=== PATIENT | male | born 1995 | race Caucasian/White ===

== ENCOUNTER 2023-10-19 08:51 | Emergency (ER) | payer OTHER, SELFPAY ==
--- OUTSIDE RECORDS SUMMARY | 2023-10-19 08:54 | XMS REPORT | Continuity of Care Document ---
:1995 Author Organization [facility] t Address [address] [facility] [address] [place] [address] Care Team Providers Name Role Phone Malachi Yo Primary Care Physician Craig Attending Clinician Unavailable GUSTAVO LARSON Attending Clinician Unavailable Therapy, Adc Covid Infusion Attending Clinician Unavailable Gustavo Larson MD Attending Clinician Doctor Unassigned, [place] Attending Clinician Unavailable Craig Admitting Clinician Unavailable Payers Payer Name Policy Type Policy Number Effective Date Expiration Date S ource [facility]: [facility] [id number] 2022 2023 00:00: 00 [place] 00[place]:00 [facility] [id number] 2020 - OUT OF STATE 00:00:00 Problems Condition Condition Condition Status Onset Resolution Last Treating Co mments Source Name Details Category Date Date Treatment Clinician Date Vasectomy Vasectomy Problem Active 2022-12 Jovita reed requested Requested 12-06 Metr o 00:00: Urology 00 Allergies, Adverse Reactions, Alerts Allergy Allergy Status Severity Reaction(s) Onset Inactive Treating Comm ents Source Name Type Date Date Clinician BENADRYL DRUG Active Unknown-Cmnt Un amanda ALLERGY 8-21 ity of [place] 00:00: [place] [address] [facility] [place] Benadryl Propensi Active Unknown - Uni vers Allergy ty to See comments 8-21 ity of [place] adverse 00:00: [facility] reaction Medical s Branch NO KNOWN Drug Active Univers ALLERGIE Class ity of [facility] [place] [facility] Social History Social Habit Start Date Stop Date Quantity Comments Source Exposure to Yes [facility] SARS-CoV-2 (event) Medica l Branch Sex Assigned At [birth year] [facility] 00:00:00 00:00:00 [facility] Smoking Status Start Date Stop Date Source Never Smoker [place] [facility] Unknown if ever smoked [facility] Medications Ordered Filled Start Stop Current Ordering Indication Dosage Frequency Signature Comments Components Source Medication Medication Date Date Medication? Clinician (SIG) Name Name casirivimab 2020- No [id number] 1200mg 1,200 mg, Univers -imdevimab 08-02 Subcutaneo it y of (REGEN-COV 20:00: 17:07 us, ONCE, [place] (EUA[place] 00 :00 1 dose, Medical injection Geno 08/02/21 Bran ch 1,200 mg at 1500, Routine casirivimab 2020- No [id number] 1200mg 1,200 mg, Univers -imdevimab 08-02 Subcutaneo it y of (REGEN-COV 20:00: 17:07 us, ONCE, [place] (EUA)) 00 :00 1 dose, Medical injection Geno 08/02/21 Bran ch 1,200 mg at 1500, Routine casirivimab 2020- No [id number] 1200mg 1,200 mg, Univers -imdevimab 08-02 Subcutaneo it y of (REGEN-COV 20:00: 17:07 us, ONCE, [place] (EUA)) 00 :00 1 dose, Medical injection Geno 08/02/21 Bran ch 1,200 mg at 1500, Routine clotrimazol clotrimazol No clotrimazo [place] e-betametha e-betametha le-betamet [place] sone 1 sone 1 hasone 1 Urology %-0.05 % %-0.05 % %-0.05 % topical topical topical cream cream cream Vital Signs Vital Name Observation Time Observation Value Comments Source BMI (Body Mass 2023-10-06 00:00:00 30.8 kg/m2 [place] Index) Urology Height 2023-10-06 00:00:00 74 [in_i] [facility] Body Weight 2023-10-06 00:00:00 240 [lb_av] [facility] Systolic blood 2021-07-21 17:40:00 112 mm[Hg] Univer sity of pressure [place] [facility] Diastolic blood 2021-07-21 17:40:00 66 mm[Hg] Unive rsity of pressure [facility] Heart rate 2021-07-21 17:40:00 88 /min [facility] Body temperature 2021-07-21 17:40:[address] [facility] Respiratory rate 2021-07-21 17:40:00 18 /min [facility] Oxygen saturation in 2021-07-21 17:40:00 94 /min [facility] blood by [facility] Pulse oximetry Branch Body height 2021-07-21 16:45:00 188 cm [facility] Body weight 2021-07-21 16:45:00 115.667 kg [facility] BMI 2021-07-21 16:45:00 32.74 kg/m2 [facility] Procedures Procedure Date / Time Performed Performing Clinician [facility] e CONSENT/REFUSAL FOR 2021-07-21 05:01:00 Doctor Unassigned, No Un [facility] DIAGNOSIS AND Name [facility] TREATMENT Plan of Care Planned Activity Planned Date Details Comments Source Future Appointment 2023-11-14 13:20:00 Everardo Garcia [facility] [address]; , [place] [address] Encounters Start End Encounter Admission Attending Care Care Encounter Source Date/Time Date/Time Type Type Clinicians Facility Department ID 2023-10-06 2023-10-06 Outpatient Craig [facility] [id number] [place] 00:00:00 00:00:00 [id number] [facility] 2023-10-06 2023-10-06 [place] [facility] [place] [facility] [id number] [facility]:00 Everardo Rankin MD: [id number] [facility] Urology [facility] - [address] [place] [address], [place] [id number] , Ph. 2023-10-01 2023-10-01 [id number] [place] 00:00:00 00:00:00 [id number] [facility] 2021-07-21 2021-07-21 Outpatient Ortega LARSON, [facility] [id number] 306 [facility] [place] 11:00:00 11:00:00 GUSTAVO rand of [place] [facility] 2021-07-21 2021-07-21 Nurse Therapy, Adc Covid Infusion [facility] [id number] Univers 08:44:00 09:44:00 Visit Gustavo Larson [id number] [id number] [id number] [facility] 053 Branch 2021-07-21 2021-07-21 Orders Doctor [place]AR[place] [id number] Univers 00:00:00 00:00:00 Only Unassigned, JOO [id number] ity of [place] [facility] [id number] [place] [id number] [facility] deshawn 009 Branch 2021-07-21 2021-07-21 Orders Doctor STAR[place] [id number] Univers 00:00:00 00:00:00 Only Unassigned, JOO [id number] ity of [place] [facility] [id number] [place] [id number] [place] [address] Branch Results This patient has no known results.
[2023-10-19] MEDS ORDERED: KETOROLAC 30 MG/ML INJ ONE (09:18)
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
[2023-10-19 10:15] VITALS: TEMP 97.8
[2023-10-19 10:16] VITALS: BP 121/87; O2SAT 99
--- NOTE | 2023-10-22 17:02 | EKG ---
Test Date: 2023-10-19 Test Time: 09:09:53 Correctional Supervisor Lieutenant: KEN MEASUREMENT RESULTS: Intervals: Rate: 67 MN: 166 QRSD: 90 QT: 360 QTc: 380 [place]: P: 48 MN: 166 QRS: 67 T: 46 INTERPRETIVE STATEMENTS: Normal sinus rhythm with sinus arrhythmia Cannot rule out Anterior infarct, age undetermined Abnormal ECG Compared to ECG 02/19/2015 02:00:33 Myocardial infarct finding now present Electronically Signed On 10-22-23 16:54:21 TWISTING OPERATOR by Naldo Casanova
== END 2023-10-19 10:10 | disposition home or self-care (01) ==
LOC: ER 08:51
DX: S20.219A Contusion of unspecified front wall of thorax, initial encounter (principal); V49.49XA Driver injured in collision with other motor vehicles in traffic accident, initial encounter; Z88.8 Allergy status to other drugs, medicaments and biological substances
CPT/HCPCS: 71045; 93005; 99284

== ENCOUNTER → 2023-12-25 | Emergency (ER) | payer BC, OTHER, SELFPAY ==
[~2023-12-25] MED LIST: CEFTRIAXONE 1000 MG/VIAL ONE; HYDROMORPHONE HCL 1 MG/ML INJ ONE; KETOROLAC 30 MG/ML INJ ONE; MORPHINE 4 MG/ML SYR ONE; NA CHLORIDE 0.9% 1,000 ML ONE; ONDANSETRON 4 MG/2 ML VIAL ONE; POTASSIUM 25 MEQ EFFERV TAB ONE; PROMETHAZINE INJ 25 MG/ML AMP ONE; TAMSULOSIN 0.4 MG SR CAP ONE
--- OUTSIDE RECORDS SUMMARY | 2023-12-25 16:14 | XMS REPORT | Continuity of Care Document ---
Author Name Unknown Address [address] [place] [address] [facility] thconnect Address 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 Role Phone Malachi Yo Primary Care Physician [phone] Craig Attending Clinician Unavailable GUSTAVO LARSON Attending Clinician Unavailable Therapy, [facility] Covid Infusion Attending Clinician Unavailable Gustavo Larson MD Attending Clinician [phone] Doctor Unassigned, [place] Attending Clinician U navailable Craig Admitting Clinician Unavailable Payers Payer Name Policy Type Policy Number Effective Date Expirati on Date Source [place] [id number] 2022 00:00:00 2023 00:00:00 [facility] [id number] 2020 00:00:00 Problems Condition Name Condition Details Condition Category Status Onset Date Resolution Date Last Treatment Date Treating Clinician Comments Source Male sterilizat ion Male Sterilizat ion Problem Active 2022-12 2-15 00:00: 00 [facility] Vasectomy requested Vasectomy Requested Problem Active 2022-12 1-06 00:00: 00 [facility] Allergies, Adverse Reactions, Alerts Allergy Name Allergy Type Status Severity Reaction(s) Onset Date Inactive Date Treating Clinician Comments Source BENADRYL ALLERGY DECONGES TANT DRUG Active Unknown-Cmnt 8 00:00: 00 [facility] Benadryl Allergy Deconges tant Propensi ty to adverse reaction s Active Unknown - See comments 07-21 00:00: 00 [facility] NO KNOWN ALLERGIE S Drug Class Active [facility] Social History Social Habit Start Date Stop Date Quantity Comments Source Exposure to SARS-CoV-2 (event) Yes [facility] Sex Assigned At 1995 00:00:00 1995 00:00:00 [facility] Smoking Status Start Date Stop Date Source Never Smoker [facility] Unknown if ever smoked [facility] Medications Ordered Medication Name Filled Medication Name Start Date Stop Date Current Medication? Ordering Clinician Indication Dosage Frequency Signature (SIG) Comments Components Source casirivimab -imdevimab (REGEN-COV (EUA)) injection 1,200 mg 08-02 20:00: 00 07-21 17:07 :00 No [id number] 1200mg 1,200 mg, Subcutaneo us, ONCE, 1 dose, Geno 08/02/21 at 1500, Routine [facility] casirivimab -imdevimab (REGEN-COV (EUA)) injection 1,200 mg 08-02 20:00: 00 07-21 17:07 :00 No [id number] 1200mg 1,200 mg, Subcutaneo us, ONCE, 1 dose, Geno 08/02/21 at 1500, Routine [facility] casirivimab -imdevimab (REGEN-COV (EUA)) injection 1,200 mg 08-02 20:00: 00 07-21 17:07 :00 No [id number] 1200mg 1,200 mg, Subcutaneo us, ONCE, 1 dose, Geno 08/02/21 at 1500, Routine [facility] clotrimazol e-betametha sone 1 %-0.05 % topical cream clotrimazol e-betametha sone 1 %-0.05 % topical cream No clotrimazo le-betamet hasone 1 %-0.05 % topical cream [facility] Naprosyn 500 mg tablet Take 1 tablet twice a day by oral route. Naprosyn 500 mg tablet Take 1 tablet twice a day by oral route. No 1 BID Naprosyn 500 mg tablet Take 1 tablet twice a day by oral route. [facility] Urolog clotrimazol e-betametha sone 1 %-0.05 % topical cream clotrimazol e-betametha sone 1 %-0.05 % topical cream No clotrimazo le-betamet hasone 1 %-0.05 % topical cream [facility] Vital Signs Vital Name Observation Time Observation Value Comments S ource Height 2023-10-06 00:00:00 74 [in_i] [place] [facility] Body Weight 2023-10-06 00:00:00 240 [lb_av] Jovita millann [facility] BMI (Body Mass Index) 2023-10-06 00:00:00 30.8 kg/m2 [facility] Systolic blood pressure 2021-07-21 17:40:00 112 mm[Hg] [facility] Diastolic blood pressure 2021-07-21 17:40:00 66 mm[Hg] [facility] Heart rate 2021-07-21 17:40:00 88 /min [facility] Body temperature 2021-07-21 17:40:00 37.56 Qing [facility] Respiratory rate 2021-07-21 17:40:00 18 /min [facility] Oxygen saturation in Arterial blood by Pulse oximetry 2021-07-21 17:40:00 94 /min [facility] Body height 2021-07-21 16:45:00 188 cm [facility] Body weight 2021-07-21 16:45:00 115.667 kg [facility] BMI 2021-07-21 16:45:00 32.74 kg/m2 [facility] Procedures Procedure Date / Time Performed Performing Clinicia n Source CONSENT/REFUSAL FOR DIAGNOSIS AND TREATMENT 2021-07-21 05:01:00 Doctor Unassigned, [place] [facility] Encounters Start Date/Time End Date/Time Encounter Type Admission Type Attending Clinicians Care Facility Care Department Encounter ID Source 2023-11-26 00:00:00 2023-11-26 00:00:00 Outpatient [facility] [id number] [facility] 2023-11-23 00:00:00 2023-11-23 00:00:00 Outpatient [facility] [id number] [facility] 2023-11-14 00:00:00 2023-11-14 00:00:00 Outpatient [facility] HMU [id number] [facility] 2023-11-14 00:00:00 2023-11-14 00:00:00 Nick Rankin MD: [id number], [place] [address] , Ph. U [facility] [id number] [facility] 2023-10-29 00:00:00 2023-10-29 00:00:00 Outpatient [facility] HMU [id number] [facility] 2023-10-19 00:00:00 2023-10-19 00:00:00 Outpatient [place]M [facility] HMU [id number] [facility] 2023-10-06 00:00:00 2023-10-06 00:00:00 Outpatient [place]M [facility] HMU [id number] [facility] Urology 2023-10-06 00:00:00 2023-10-06 00:00:00 Nick Rankin MD: [id number] [facility] [address], [place] [address] , Ph. U [facility] Urology [place] [id number] [facility]rology 2023-10-01 00:00:00 2023-10-01 00:00:00 Outpatient [place]M [facility]U HMU [id number] [facility] U[facility] 2021-07-21 11:00:00 2021-07-21 11:00:00 Outpatient GUSTAVO WILKERSON [facility] [id number] [facility] 2021-07-21 08:44:00 2021-07-21 09:44:00 Nurse Visit Therapy, Adc Covid Gustavo Cha [facility] 1..114 [id number] [facility] 2021-07-21 00:00:00 2021-07-21 00:00:00 Orders Only Doctor Unassigned, [place] [facility] [id number] [facility] 2021-07-21 00:00:00 2021-07-21 00:00:00 Orders Only Doctor Unassigned, [place] [facility] 1..114 [id number] [facility]
[2023-12-25 16:47] LABS: Absolute Lymphocytes (CBC) 1.1 K/uL (0.7-4.9); Hematocrit 43.4 % (39.6-49.0); Lymphocytes % 12.3 % (15.3-44.8); MCV 85.8 fL (80-100); MPV 8.1 fL (7.6-11.3); Platelets 216 thou/uL (152-406); RBC Red Blood Cell Count 5.06 M/uL (4.33-5.43)
[2023-12-25 17:03] LABS: Albumin 4.5 g/dL (3.4-5.0); Bilirubin Total 0.7 mg/dL (0.2-1.0); Potassium 3.3 mEq/L (3.5-5.1)
--- NOTE | 2023-12-25 18:13 | RAD REPORT ---
EXAM DESCRIPTION: CT - Stone Protocol - 12/25/2023 5:43 pm CLINICAL HISTORY: Abdominal pain. Right flank pain COMPARISON: None. TECHNIQUE: Computed axial tomography of the abdomen pelvis was obtained without oral or IV contrast. Lack of IV and oral contrast limits evaluation of solid organs, appendix, bowel, and vessels. Venegas l reformatted images were obtained and reviewed. All CT scans are performed using dose optimization technique as appropriate and may include automated exposure control or mA/KV adjustment according to patient size. FINDINGS: Mild right hydronephrosis. 4 millimeter calculus right UPJ. Left renal calculus is not see n The liver, spleen, pancreas and adrenals appear grossly normal There is no evidence of diverticulitis. The appendix appears normal IMPRESSION: 4 millimeter calculus right UPJ resulting in mild right hydronephrosis
--- NOTE | 2023-12-25 18:16 | ER ---
Nurse's Notes [facility] Name: Joao Donohue Age: 28 yrs Sex: Male : 1995 Arrival Date: 12/25/2023 Time: 16:11 Bed 13 Private MD: Diagnosis: Abdominal tenderness;Hydronephrosis with renal and ureteral calculous obstruction-4mm UVJ;Hypokalemia Presentation: 12/25 16:24 Chief complaint: Patient states: he started having right sided flank pain at approx ap3 1300 today. patient reports that his pain is currently an 8/10 on the pain scale. patient also reports nausea and vomit X's 1. Coronavirus screen: At this time, the client does not indicate any symptoms associated with coronavirus-19. Ebola Screen: No symptoms or risks identified at this time. Initial Sepsis Screen: Does the patient meet any 2 criteria? HR > 90 bpm. Does the patient have a suspected source of infection? Yes: Dysuria/Frequency/Urgency/UTI. Risk Assessment: Do you want to hurt yourself or someone else? Patient reports no desire to harm self or others. Onset of symptoms was December 25, 2023 at 13:00. 16:24 Method Of Arrival: Ambulatory ap3 16:24 Acuity: LINO 3 ap3 Triage Assessment: 16:27 General: Appears uncomfortable, Behavior is calm, cooperative, appropriate for age. ap3 Pain: Complains of pain in right flank Pain currently is 8 out of 10 on a pain scale. at worst was 10 out of 10 on a pain scale. Pain began 3 hours ago. Neuro: Level of Consciousness is awake, alert, obeys commands, Oriented to person, place, time, situation, Appropriate for age. Cardiovascular: Patient's skin is warm and dry. Respiratory: Airway is patent Respiratory effort is even, unlabored, Respiratory pattern is regular, symmetrical. GI: Reports nausea, vomiting. : Reports pain in right flank(s). Historical: - Allergies: 16:26 Benadryl; ap3 16:26 Versed; ap3 - Home Meds: 16:26 None [Active]; ap3 - PMHx: 16:26 None; ap3 - Immunization history:: Client reports having NOT received the Covid vaccine. Flu vaccine is not up to date. - Social history:: Smoking status: Patient denies any tobacco usage or history of. Patient uses alcohol, occasionally. Screenin:27 [facility] ED Fall Risk Assessment (Adult) History of falling in the last 3 months, ap3 including since admission No falls in past 3 months (0 pts). Abuse screen: Denies threats or abuse. Nutritional screening: No deficits noted. Tuberculosis screening: No symptoms or risk factors identified. Assessment: 16:30 General: Appears uncomfortable, ill, well groomed, well developed, well nourished, me1 Behavior is calm, cooperative, appropriate for age, Reports he started having right sided flank pain at approx 1300 today. patient reports that his pain is currently an 8/10 on the pain scale. patient also reports nausea and vomit X's 1. Pain: Complains of pain in right flank Pain does not radiate. Pain currently is 10 out of 10 on a pain scale. Quality of pain is described as sharp, stabbing, Pain began suddenly, 3 hours ago. Is continuous. Neuro: Level of Consciousness is awake, alert, obeys commands, Oriented to person, place, time, situation, Appropriate for age. Cardiovascular: Capillary refill < 3 seconds Patient's skin is warm and dry. Respiratory: Airway is patent Respiratory effort is even, unlabored, Respiratory pattern is regular, symmetrical. : Reports pain in right flank(s), Denies burning with urination, urinary frequency, urgency. 20:08 GI: Bowel sounds present X 4 quads. Abd is soft and non tender X 4 quads. me1 Vital Signs: 16:24 BP 118 / 81; Pulse 103; Resp 17; Temp 98.8; Pulse Ox 100% ; Weight 111.13 kg; Height 6 ap3 ft. 2 in. ; Pain 8/10; 16:32 BP 130 / 73; Pulse 112; Resp 19; Pulse Ox 100% on R/A; me1 17:30 BP 135 / 82; Pulse 110; Resp 20; Pulse Ox 99% on R/A; me1 18:30 BP 128 / 69; Pulse 106; Resp 19; Pulse Ox 98% on R/A; me1 19:30 BP 127 / 83; Pulse 102; Resp 20; Pulse Ox 99% on R/A; me1 20:01 BP 106 / 66; Pulse 102; Resp 18; Pulse Ox 100% on R/A; me1 16:24 Body Mass Index 31.46 (111.13 kg, 187.96 cm) ap3 16:24 Pain Scale: Adult ap3 ED Course: 16:14 Patient arrived in ED. kj1 16:22 Darron Ortiz MD is Attending Physician. clayton 16:26 Triage completed. ap3 16:28 Arm band placed on right wrist. ap3 16:28 Patient has correct armband on for positive identification. Call light in reach. Side ap3 rails up X 1. Adult w/ patient. Pulse ox on. NIBP on. 16:30 Provided Education on: POC. Verbalized understanding.. me1 16:30 No provider procedures requiring assistance completed. me1 16:35 Danielle Morales, ISAIAS is Primary Nurse. me1 16:44 Initial lab(s) drawn, by ED staff, sent to lab. Inserted saline lock: 20 gauge in right [id number] antecubital area, using aseptic technique. Blood collected. 17:45 CT Stone Protocol In Process Unspecified. EDMS 18:15 Christoph Vargas MD is Referral Physician. clayton 20:09 IV discontinued, intact, bleeding controlled, No redness/swelling at site. Pressure me1 dressing applied. Administered Medications: 17:07 Drug: NS 0.9% IV 1000 ml IV at 1 bolus Per protocol; 1000 mL bolus Route: IV; Rate: 1 me1 bolus; Site: right antecubital; 18:18 Follow up: IV Status: Completed infusion; IV Intake: 1000ml me1 17:07 Drug: Ondansetron IVP 4 mg IVP once; over 2 minutes Route: IVP; Site: right antecubital;me1 17:12 Follow up: Response: No adverse reaction me1 17:07 Drug: morphine IVP or IV 4 mg IVP once over 4 mins Route: IVP; Infused Over: 4 mins; me1 Site: right antecubital; 17:12 Follow up: Response: No adverse reaction; Pain is decreased me1 17:07 Drug: Ketorolac IVP 30 mg IVP once Route: IVP; Site: right antecubital; me1 17:12 Follow up: Response: No adverse reaction; Pain is decreased me1 17:07 Drug: Flomax PO 0.4 mg PO once Route: PO; me1 17:13 Follow up: Response: No adverse reaction me1 18:10 Drug: Rocephin IV 1 grams IV at per protocol once; Given slow IV push per pharmacy me1 instructions Route: IV; Rate: per protocol; Site: right antecubital; 18:18 Follow up: Response: No adverse reaction; IV Status: Completed infusion; IV Intake: [id number] 18:10 Drug: morphine IVP or IV 4 mg IVP once over 4 mins Route: IVP; Infused Over: 4 mins; me1 Site: right antecubital; 18:19 Follow up: Response: No adverse reaction; Pain is decreased me1 18:17 Drug: NS 0.9% IV 1000 ml IV at 1 bolus Per protocol; 1000 mL bolus Route: IV; Rate: 1 me1 bolus; Site: right antecubital; 20:10 Follow up: IV Status: Completed infusion; IV Intake: 1000ml me1 18:17 Drug: Potassium PO Effervescent Tablet 25 mEq PO once; dissolve in 4 ounces of water or me1 juice Route: PO; 18:40 Follow up: Response: No adverse reaction me1 18:33 Drug: Promethazine IVP 25 mg IVP once Route: IVP; Site: right antecubital; me1 18:40 Follow up: Response: No adverse reaction; Nausea is decreased me1 18:33 Drug: HYDROmorphone IVP 1 mg IVP once Route: IVP; Site: right antecubital; me1 18:40 Follow up: Response: No adverse reaction; Pain is decreased me1 18:37 Drug: NS 0.9% IV 1000 ml IV at 1 bolus Per protocol; 1000 mL bolus Route: IV; Rate: 1 me1 bolus; Site: right antecubital; 20:10 Follow up: IV Status: Completed infusion; IV Intake: 1000ml me1 Medication: 16:30 VIS not applicable for this client. me1 Intake: 18:18 IV: 1000ml; Total: 1000ml. me1 18:18 IV: 10ml; Total: 1010ml. me1 20:10 IV: 1000ml; Total: 2010ml. me1 20:10 IV: 1000ml; Total: 3010ml. me1 Outcome: 18:16 Discharge ordered by MD. arnold 20:08 Discharged to home ambulatory, with significant other, me1 20:08 Condition: stable 20:08 Discharge instructions given to patient, significant other, Instructed on discharge instructions, follow up and referral plans. medication usage, Demonstrated understanding of instructions, follow-up care, medications, Prescriptions given X 4, 20:10 Patient left the ED. me1 Signatures: Dispatcher [employer] EDDarron Stiles MD MD cha Prokisch, Amanda RN RN ap3 Genie Cuenca kj1 Danielle Morales RN RN me1 Russell Torres [email or web address] Corrections: (The following items were deleted from the chart) 17:08 16:24 Chief complaint: Patient states: he started having right sided flank pain at ne1 approx 1300 today. patient reports that his pain is currently an 8/10 on the pain scale. patient also reports nausea and vomit X's 1 ap3
--- NOTE | 2023-12-25 18:17 | EDPHYS ---
Physician Documentation [facility] Name: Joao Donohue Age: 28 yrs Sex: Male : 1995 Arrival Date: 12/25/2023 Time: 16:11 Bed 13 Private MD: DELMER Physician Darron Ortiz HPI: 12/25 17:24 This 28 yrs old Male presents to ER via Ambulatory with complaints of clayton Possible Kidney Stone, Nausea/Vomiting. 17:24 The patient presents to the emergency department with nausea, vomiting, that is clayton intermittent, abdominal pain, of the anterior aspect of right lateral abdomen, posterior aspect of right lateral abdomen and right lower quadrant. Onset: The symptoms/episode began/occurred 1 day(s) ago. Possible causes: unknown. The symptoms are aggravated by nothing. The symptoms are alleviated by nothing. Associated signs and symptoms: Pertinent positives: abdominal pain, nausea, vomiting. Severity of symptoms: At their worst the symptoms were moderate severe in the emergency department the symptoms are unchanged. The patient has not experienced similar symptoms in the past. Historical: - Allergies: 16:26 Benadryl; ap3 16:26 Versed; ap3 - Home Meds: 16:26 None [Active]; ap3 - PMHx: 16:26 None; ap3 - Immunization history:: Client reports having NOT received the Covid vaccine. Flu vaccine is not up to date. - Social history:: Smoking status: Patient denies any tobacco usage or history of. Patient uses alcohol, occasionally. ROS: 17:26 Constitutional: Negative for fever, chills, and weight loss, Eyes: Negative for injury, clayton pain, redness, and discharge, ENT: Negative for injury, pain, and discharge, Neck: Negative for injury, pain, and swelling, Cardiovascular: Negative for chest pain, palpitations, and edema, Respiratory: Negative for shortness of breath, cough, wheezing, and pleuritic chest pain, : Negative for injury, bleeding, discharge, and swelling, MS/Extremity: Negative for injury and deformity, Skin: Negative for injury, rash, and discoloration, Neuro: Negative for headache, weakness, numbness, tingling, and seizure, Psych: Negative for depression, anxiety, suicide ideation, homicidal ideation, and hallucinations, Allergy/Immunology: Negative for hives, rash, and allergies, Endocrine: Negative for neck swelling, polydipsia, polyuria, polyphagia, and marked weight changes, Hematologic/Lymphatic: Negative for swollen nodes, abnormal bleeding, and unusual bruising, 17:26 Abdomen/GI: Positive for abdominal pain, nausea and vomiting, abdominal cramps, 17:26 Back: Positive for pain at rest, flank pain, on the right, Exam: 17:26 Constitutional: This is a well developed, well nourished patient who is awake, alert, clayton and in no acute distress. Head/Face: Normocephalic, atraumatic. Eyes: Pupils equal round and reactive to light, extra-ocular motions intact. Lids and lashes normal. Conjunctiva and sclera are non-icteric and not injected. Cornea within normal limits. Periorbital areas with no swelling, redness, or edema. ENT: Nares patent. No nasal discharge, no septal abnormalities noted. Tympanic membranes are normal and external auditory canals are clear. Oropharynx with no redness, swelling, or masses, exudates, or evidence of obstruction, uvula midline. Mucous membranes moist. Neck: Trachea midline, no thyromegaly or masses palpated, and no cervical lymphadenopathy. Supple, full range of motion without nuchal rigidity, or vertebral point tenderness. No Meningismus. Chest/axilla: Normal chest wall appearance and motion. Nontender with no deformity. No lesions are appreciated. Cardiovascular: Regular rate and rhythm with a normal S1 and S2. No gallops, murmurs, or rubs. Normal PMI, no JVD. No pulse deficits. Respiratory: Lungs have equal breath sounds bilaterally, clear to auscultation and percussion. No rales, rhonchi or wheezes noted. No increased work of breathing, no retractions or nasal flaring. Abdomen/GI: Soft, non-tender, with normal bowel sounds. No distension or tympany. No guarding or rebound. No evidence of tenderness throughout. Back: No spinal tenderness. No costovertebral tenderness. Full range of motion. Male : Normal genitalia with no discharge or lesions. Skin: Warm, dry with normal turgor. Normal color with no rashes, no lesions, and no evidence of cellulitis. MS/ Extremity: Pulses equal, no cyanosis. Neurovascular intact. Full, normal range of motion. Neuro: Awake and alert, GCS 15, oriented to person, place, time, and situation. Cranial nerves II-XII grossly intact. Motor strength 5/5 in all extremities. Sensory grossly intact. Cerebellar exam normal. Normal gait. Psych: Awake, alert, with orientation to person, place and time. Behavior, mood, and affect are within normal limits. 17:26 : CVA tenderness, on the right, Male external genitalia: normal, no abrasion, no discharge, no erythema, no injury, no swelling, no tenderness, no evidence of ulceration, Bladder: is normal, Sexual behavior: the patient is sexually active, and reports a single partner, Vital Signs: 16:24 BP 118 / 81; Pulse 103; Resp 17; Temp 98.8; Pulse Ox 100% ; Weight 111.13 kg; Height 6 ap3 ft. 2 in. ; Pain 8/10; 16:32 BP 130 / 73; Pulse 112; Resp 19; Pulse Ox 100% on R/A; me1 17:30 BP 135 / 82; Pulse 110; Resp 20; Pulse Ox 99% on R/A; me1 18:30 BP 128 / 69; Pulse 106; Resp 19; Pulse Ox 98% on R/A; me1 19:30 BP 127 / 83; Pulse 102; Resp 20; Pulse Ox 99% on R/A; me1 20:01 BP 106 / 66; Pulse 102; Resp 18; Pulse Ox 100% on R/A; me1 16:24 Body Mass Index 31.46 (111.13 kg, 187.96 cm) ap3 16:24 Pain Scale: Adult ap3 MDM: 16:22 Patient medically screened. clayton 17:27 Differential diagnosis: nephrolithiasis, pyelonephritis, UTI, testicular torsion, clayton diverticulitis, pancreatitis, Nonspecific abd pain, gastritis, pancreatitis, appendicitis, diverticulitis, viral gastroenteritis, gastroenteritis, appendicitis, gastritis, gastroesophageal reflux disease, non-specific abd pain, pancreatitis, Pyelonephritis. Data reviewed: vital signs, nurses notes, lab test result(s), radiologic studies, CT scan. Consideration of Admission/Observation Escalation of care including admission/observation considered. I considered the following discharge prescriptions or medication management in the emergency department Medications were administered in the Emergency Department. See MAR. Independent interpretation of the following test(s) in the Emergency Department CT Scan: My interpretation is ct stone. Test considered but Not performed: EKG: no ekg. Historians other than the Patient: Spouse/Significant Other: well informed. Care significantly affected by the following chronic conditions: Obesity, none. 12/25 16:24 Order name: CBC with Diff; Complete Time: 17:22 [facility] 12/25 16:24 Order name: CMP; Complete Time: 17:22 [facility] 12/25 16:24 Order name: Lipase; Complete Time: 17:22 [facility] 12/25 16:24 Order name: Urinalysis w/ reflexes [facility] 12/25 19:32 Order name: Urine Culture [facility] 12/25 17:22 Order name: CT Stone Protocol; Complete Time: 18:15 [facility] 12/25 16:24 Order name: IV Saline Lock; Complete Time: 16:44 [facility] 12/25 16:24 Order name: Labs collected and sent; Complete Time: 16:44 [facility] Administered Medications: 17:07 Drug: NS 0.9% IV 1000 ml IV at 1 bolus Per protocol; 1000 mL bolus Route: IV; Rate: 1 me1 bolus; Site: right antecubital; 18:18 Follow up: IV Status: Completed infusion; IV Intake: 1000ml me1 17:07 Drug: Ondansetron IVP 4 mg IVP once; over 2 minutes Route: IVP; Site: right antecubital;me1 17:12 Follow up: Response: No adverse reaction me1 17:07 Drug: morphine IVP or IV 4 mg IVP once over 4 mins Route: IVP; Infused Over: 4 mins; me1 Site: right antecubital; 17:12 Follow up: Response: No adverse reaction; Pain is decreased me1 17:07 Drug: Ketorolac IVP 30 mg IVP once Route: IVP; Site: right antecubital; me1 17:12 Follow up: Response: No adverse reaction; Pain is decreased me1 17:07 Drug: Flomax PO 0.4 mg PO once Route: PO; me1 17:13 Follow up: Response: No adverse reaction me1 18:10 Drug: Rocephin IV 1 grams IV at per protocol once; Given slow IV push per pharmacy me1 instructions Route: IV; Rate: per protocol; Site: right antecubital; 18:18 Follow up: Response: No adverse reaction; IV Status: Completed infusion; IV Intake: [id number] 18:10 Drug: morphine IVP or IV 4 mg IVP once over 4 mins Route: IVP; Infused Over: 4 mins; me1 Site: right antecubital; 18:19 Follow up: Response: No adverse reaction; Pain is decreased me1 18:17 Drug: NS 0.9% IV 1000 ml IV at 1 bolus Per protocol; 1000 mL bolus Route: IV; Rate: 1 me1 bolus; Site: right antecubital; 20:10 Follow up: IV Status: Completed infusion; IV Intake: 1000ml me1 18:17 Drug: Potassium PO Effervescent Tablet 25 mEq PO once; dissolve in 4 ounces of water or me1 juice Route: PO; 18:40 Follow up: Response: No adverse reaction me1 18:33 Drug: Promethazine IVP 25 mg IVP once Route: IVP; Site: right antecubital; me1 18:40 Follow up: Response: No adverse reaction; Nausea is decreased me1 18:33 Drug: HYDROmorphone IVP 1 mg IVP once Route: IVP; Site: right antecubital; me1 18:40 Follow up: Response: No adverse reaction; Pain is decreased me1 18:37 Drug: NS 0.9% IV 1000 ml IV at 1 bolus Per protocol; 1000 mL bolus Route: IV; Rate: 1 me1 bolus; Site: right antecubital; 20:10 Follow up: IV Status: Completed infusion; IV Intake: 1000ml me1 Disposition Summary: 12/25/23 18:16 Discharge Ordered Notes: Location: Home clayton Problem: new clayton Symptoms: have improved clayton Condition: Stable clayton Diagnosis - Abdominal tenderness clayton - Hydronephrosis with renal and ureteral calculous obstruction - 4mm UVJ clayton - Hypokalemia clayton Followup: clayton - With: Private Physician - When: 2 - 3 days - Reason: Recheck today's complaints, Continuance of care, Re-evaluation by your physician Followup: clayton - With: Christoph Vargas MD - When: 2 - 3 days - Reason: Recheck today's complaints, Re-evaluation by your physician Discharge Instructions: - Discharge Summary Sheet clayton - Abdominal Pain, Adult clayton - Potassium Content of Foods clayton - Kidney Stones clayton - Kidney Stones, [id number] clayton - Abdominal Pain, Adult, [id number] clayton - Hydronephrosis clayton - Dietary Guidelines to Help Prevent Kidney Stones clayton - Hypokalemia clayton Forms: - Medication Reconciliation Form clayton - Thank You Letter clayton - Antibiotic Education clayton - Prescription Opioid Use clayton - Patient Portal Instructions clayton - Leadership Thank You Letter clayton Prescriptions: - Flomax 0.4 mg Oral capsule - take 1 capsule ORAL route every day at bedtime; 20 capsule; Refills: 0, Product [facility] Selection Permitted - acetaminophen-codeine 300-30 mg Oral tablet - take 2 tablet ORAL route 4 times per day; 20 tablet; Refills: 0, Product [facility] Selection Permitted - ondansetron 4 mg Oral Tablet,disintegrating - take 1 tablet ORAL route every 6-8 hours for 5 days; 20 tablet; Refills: 0, [facility] Product Selection Permitted - Cipro 500 mg Oral Tablet - take 1 tablet ORAL route every 12 hours for 7 days; 14 tablet; Refills: 0, [facility] Product Selection Permitted Signatures: Dispatcher [employer] Darron Agee MD MD cha Prokisch, Amanda RN RN ap3 Danielle Morales RN RN me1
[2023-12-25 19:28] LABS: Specific Gravity 1.027 (1.005-1.030); Urine Bacteria <20 /HPF (<20); Urine Bilirubin NEGATIVE (Negative); Urine Blood 3+ (OVER) (Negative); Urine Clarity Extremely Turbid (Clear); Urine Color Light-Orange (Yellow); Urine Glucose NEGATIVE (Negative); Urine Mucus 1+ /HPF (None Seen); Urine Protein 2+ (Negative); Urine RBC >50 /HPF (None Seen); Urine Urobilinogen Normal (Normal); Urine pH 7.5 (5.0-7.0)
[2023-12-25 21:22] VITALS: TEMP 98.8
[2023-12-25 21:47] VITALS: BP 106/66; O2SAT 100
== END ==
LOC: ER 16:11
DX: N13.2 Hydronephrosis with renal and ureteral calculous obstruction (principal); E87.6 Hypokalemia; R10.9 Unspecified abdominal pain
CPT/HCPCS: 87088; 85025; 81001; 87086; 36415; 83690; 80053; 76377; 74176; J2550; J1170; J2405; J7030 ×3; J0696; 96361; 96374; 96375; 99284